=== PATIENT | female | born 1940 | race Caucasian/White ===

== ENCOUNTER 2017-11-10 13:47 | Emergency (ER) | payer OTHER, MEDICARE ==
[2017-11-10] MEDS ORDERED: ALENDRONATE SOD70 M2 PO (14:32)
[2017-11-10] MEDS ORDERED: ALPHA LIPOIC A600 MG PO (14:33)
[2017-11-10] MEDS ORDERED: CALCIUM600 M3 PO (14:33)
[2017-11-10] MEDS ORDERED: GABAPENTIN600 M1 PO (14:34)
[2017-11-10] MEDS ORDERED: LEVOTHYROXINE50 MCG PO (14:35)
[2017-11-10] MEDS ORDERED: KRILL OIL500 MG PO (14:35)
[2017-11-10] MEDS ORDERED: METHOTREXATE2.5 M2 PO (14:35)
[2017-11-10] MEDS ORDERED: VITAMIN D31000 UNI2 PO (14:36)
[2017-11-10] MEDS ORDERED: OMEPRAZOLE20 M2 PO (14:36)
[2017-11-10] MEDS ORDERED: GALZIN25 MG PO (14:37)
--- NOTE | 2017-11-10 14:58 | RADIOLOGY REPORT ---
EXAMINATION: XR PORTABLE CHEST CLINICAL INFORMATION: Syncope. Evaluate for pneumonia or congestive heart failure. COMPARISON: Chest radiograph 12/21/2012. TECHNIQUE: Portable frontal view of the chest was obtained. FINDINGS: Lungs are well-expanded. There is no focal consolidative disease, pleural effusion, or pneumothorax. The cardiac silhouette and upper mediastinal contours are normal. No acute osseous finding. IMPRESSION: Unremarkable chest radiograph. No consolidative disease or effusion.
[2017-11-10 15:01] LABS: ABSOLUTE BASOPHIL COUNT 0.1 /CUMM (0.0-0.2); ABSOLUTE EOSINOPHIL COUNT 0.1 /CUMM (0.0-0.7); ABSOLUTE GRANULOCYTE CT 5.3 /CUMM (1.4-6.5); ABSOLUTE LYMPH COUNT 1.2 /CUMM (1.2-3.4); ABSOLUTE MONOCYTE COUNT 0.5 /CUMM (0.10-0.60); BASOPHIL % 0.7 % (0.0-2.0); EOSINOPHIL % 1.4 % (0-5); GRANULOCYTE % 73.8 % (42.2-75.2); HEMATOCRIT 38.1 % (37-47); MEAN CORPUSCULAR HGB 33.3 PG (27.0-31.0); MEAN CORPUSCULAR HGB CONC 32.8 G/DL (33.0-37.0); MEAN CORPUSCULAR VOLUME 101.2 FL (81.0-99.0); MEAN PLATELET VOLUME 7.7 FL (7.4-10.4); PLATELET COUNT 264 /CUMM (130-400); RBC DISTRIBUTION WIDTH 15.9 % (11.5-14.5); RED BLOOD CELL CT 3.76 /CUMM (4.20-5.40); WHITE BLOOD CELL COUNT 7.1 /CUMM (4.8-10.8)
--- NOTE | 2017-11-10 15:37 | ED SYNCOPE COMPLAINT ---
History of Present Illness General Chief Complaint: Syncope and Near-Syncope Stated Complaint: NEAR SYNCOPLE EPISODE Source: patient Exam Limitations: no limitations Allergies Coded Allergies: NO KNOWN ALLERGIES (12/18/12) Reconcile Medications Alendronate Sodium 70 MG TABLET 1 TAB PO QW BONE (Reported) in the morning, at least 30 minutes before the first food, beverage, or medication of the day Alpha Lipoic Acid 600 MG CAPSULE 1 CAP PO DAILY SUPPLEMENT (Reported) Calcium (Elemental-Fr Calcarb) (Calcium) 600 MG CALCIUM (1,500 MG) TABLET 1 TAB PO DAILY SUPPLEMENT (Reported) Cholecalciferol (Vitamin D3) 1,000 UNIT TABLET 1 TAB PO DAILY VITAMIN SUPPORT (Reported) Gabapentin 600 MG TABLET 1 TAB PO 4 TIMES/DAY NEUROPATHY (Reported) Krill Oil 500 MG CAPSULE 1 CAP PO DAILY supplement (Reported) Levothyroxine Sodium 50 MCG TABLET 1 TAB PO DAILY AC THYROID (Reported) Methotrexate 2.5 MG TABLET 4 TAB PO QW UNKNOWN (Reported) Omeprazole 20 MG CAPSULE.DR 1 CAP PO DAILY GI (Reported) Zinc Acetate (Galzin) 25 MG (ZINC) CAPSULE 1 CAP PO DAILY SUPPLEMENT ( Reported) Triage Note: PT BIBA FROM HER PMD AFTER HAVING A NEAR SYNCOPAL EPISODE. PT STATES SHE WAS BEING SEEN A ROUTINE VISIT AND SHE WALKED INTO THE ROOM, LEGS BEGAN TO SHAKE AND SHE FELL TO HER BOTTOM. PT STATES SHE DID FEEL LIGHTHEADED. DENIES CP, DENIES SOB. FELT FINE FOR THE DAY. PT ALERT AND ORIENTED, DENIES HITTING HER HEAD. SKIN INTACT Triage Nurses Notes Reviewed? yes Timing: single episode today Precipitating Factors: lightheadedness Context: became dizzy/fainted Episode Description: STOOD UP BECAMNE DIZZY AND LIGHTHEADED, NO LOC Loss of Consciousness: no loss of consciousness Associated Symptoms: dizziness LMP (ages 10-50): post menopausal : No Patient currently breastfeeds: No HPI: 77 YEAR OLD FEMALE WITH HX OF HYPOTHYRIODISM AND OSTEOPOROSIS PRESENTS FOR EVAL OF A P[RE-SYNCOPEAL EPISODE. PT WAS AT HER PCP FOR A WELL CHECK. SHE WAS SITTING AND WAS CALLED BACK TO THE EXAM ROOM. AFTER STANDING SHE BECOME LIGHTHED ANBD DIZZY. SHE WAS AFRIAD SHE MAY PASS OUT SO SHE LOWERED HERSELF TO THE GROUND. THERE WAS NO LOC. NO HEAD STRIKE. NO CHEST PAIN SOB, PERSISTENT DIZZY, SLURRED SPEECH. ONE SIDED WEAKNESS N/V. PCP RP[EORTS PT WAS FOUND TO BE ORTHOSTATIC IN THE OFFICE. PT ALSO REPROTS THAT SHE HAS HAD LOWER BACK PAIN SINCE A FALL 2 WEEKS AGO. THE FALL WAS MECHANICAL. SHE LANDED ON HER BACK. PAIN LOCATED ON HER MIDLINE LUMBAR SPINE (Henry Melissa) Vital Signs & Intake/Output Vital Signs & Intake/Output Vital Signs Date Time Temp Pulse Resp B/P B/P Pulse O2 O2 Flow FiO2 Mean Ox Delivery Rate 11/10 2018 97.8 71 18 124/75 97 Room Air ED Intake and Output 11/11 0000 11/10 1200 Intake Total 0 Output Total Balance 0 Intake, Oral 0 (Quin ALEXANDRE,Wilton Mata) Past History Medical History Any Pertinent Medical History? see below for history History of MRSA: No History of VRE: No History of CDIFF: No Surgical History Surgical History: non-contributory Psychosocial History Who do you live with Patient/Self Services at Home None What is your primary language Taiwanese Family History Hx Contributory? No (Henry Melissa) Review of Systems Review of Systems Constitutional: Reports: no symptoms. EENTM: Reports: no symptoms. Respiratory: Reports: no symptoms. Cardiovascular: Reports: no symptoms. GI: Reports: no symptoms. Genitourinary: Reports: no symptoms. Musculoskeletal: Reports: back pain. Skin: Reports: no symptoms. Neurological/Psychological: Reports: see HPI (DIZZY, LIGHTHEADED). All Other Systems: Reviewed and Negative (Henry Melissa) Physical Exam Physical Exam General Appearance: well developed/nourished, no apparent distress, alert, awake Head: atraumatic, normal appearance Eyes: Bilateral: normal appearance, PERRL, EOMI. Ears, Nose, Throat: normal pharynx, normal ENT inspection, hearing grossly normal Neck: normal inspection, supple, full range of motion Respiratory: normal breath sounds, chest non-tender, no respiratory distress, lungs clear Cardiovascular: regular rate/rhythm, normal peripheral pulses (NO RADIAL FEM DELAY) Gastrointestinal: normal bowel sounds, soft, non-tender, no organomegaly Back: normal inspection, normal range of motion, THE LUMBAR SPINE AND PARASPINOUS MUSCLES ARE TENDER TO PALPATION. NO BRUSING SWELLING OR ABRASIONS. NO STEP OFFS OR DEFORMITIES. Extremities: normal inspection, normal range of motion, no edema Psychiatric: awake, alert, oriented x 3 Cranial Nerves: normal hearing, normal speech, PERRL Coordination/Gait: normal finger to nose, normal gait, NEGATIVE ROMBERG Motor/Sensory: no motor/sensory deficits Skin: intact, normal color, warm/dry Core Measures ACS in differential dx? No CVA/TIA Diagnosis: No Sepsis Present: No Sepsis Focused Exam Completed? No (Jesús BATES,Henry) Progress Differential Diagnosis: aortic valve, drug induced syncope, orthostatic syncope, other valvular disease, pulmonary embolus, seizure, sick sinus syndrome, subarachnoid hem., TIA/CVA, ventricular tach/fib Diagnostic Imaging: Viewed by Me: CT Scan. Discussed w/RAD: CT Scan. Radiology Impression: PATIENT: DALE LUND PRESENT AGE: 77 PATIENT ACCOUNT NO: [id number] : 41 LOCATION: [facility] ORDERING PHYSICIAN: Henry BATES SERVICE DATE: 11/10/17 EXAM TYPE: CAT - CT ABD & PELVIS W/O IV CONTRAS EXAMINATION: CT ABDOMEN AND PELVIS WITHOUT CONTRAST CLINICAL INFORMATION: Fall. Lower back pain. COMPARISON: CT scan of the abdomen and pelvis 12/16/2012. TECHNIQUE: Multidetector volumetric imaging was performed from the superior aspect of the liver through the pubic symphysis. Sagittal and coronal reformatted images were obtained on the technologist's workstation. DLP: 310.72 mGy-cm FINDINGS: LUNG BASES: There is a solid somewhat spiculated pulmonary nodule within the right lower lobe that measures 1.5 cm in maximal transaxial dimension. Tree-in-bud opacities are also visualized within the lateral segment of the middle lobe and within the lingula of the left upper lobe. Minimal bibasilar subsegmental atelectasis. No pleural effusion or pneumothorax. LIVER, GALLBLADDER, AND BILIARY TREE: The unenhanced liver attenuation is grossly homogeneous with no evidence of a discrete hepatic parenchymal mass. There appears to be some distention of the intrahepatic biliary system which is otherwise suboptimal assessed on this examination due to the absence of intravenous contrast. The gallbladder appears surgically absent. PANCREAS: Unremarkable. SPLEEN: Unremarkable. ADRENAL GLANDS: Unremarkable. KIDNEYS AND URETERS: There is bilateral renal cortical thinning. No discrete renal parenchymal mass. No abnormal perinephric inflammation or collection. No hydronephrosis. No worrisome mass or calcification along the expected course of the right or left ureter. BLADDER: Unremarkable. GASTROINTESTINAL TRACT: There is a small hiatal hernia. Stomach and small bowel is otherwise unremarkable. No evidence of small bowel obstruction. A few diverticula are visualized within the descending colon. No evidence of acute diverticulitis. The appendix is normal. No free intraperitoneal air or fluid. ABDOMINAL WALL: There is a tiny fat- containing umbilical hernia. LYMPH NODES: No pathologically enlarged mesenteric or retroperitoneal lymph nodes. VASCULAR: Atheromatous calcification involves the abdominal aorta and iliac vessels. The unenhanced inferior vena cava is unremarkable. PELVIC VISCERA: There is an anteverted uterus. No worrisome adnexal mass. OSSEOUS STRUCTURES: There is grade 2 anterolisthesis of L5 on S1 related to bilateral L5 pars interarticularis defects resulting in severe compression of the foraminal segments of both L5 nerve roots. Slight grade 1 anterolisthesis of L3 on L4 related to advanced facet degenerative changes at this level. Although the canal is not well assessed on this examination due to inherent limitations of CT there appears to be moderate to severe canal stenosis at L3-L4. There is a chronic upper L2 endplate disc herniation and moderate to severe degenerative spondylosis at multiple levels within the lumbar spine. IMPRESSION: Grade 2 anterolisthesis of L5 on S1 related to bilateral L5 pars interarticularis defect resulting in severe compression of the foraminal segments of both L5 nerve roots. Multilevel degenerative spondylosis within the lumbar spine. The canal is not well assessed on this examination due to inherent limitations of CT. There appears to be moderate to severe canal stenosis at L3- L4. DICTATED BY: Elana LAEXANDRE,Jimmy Florence DATE/TIME DICTATED:11/10/171756 SEAFOOD SPECIALIST:JANINE DATE/TIME TRANSCRIBED:11/10/171756 Initial ED EKG: normal sinus rhythm, LBBB, no ST T wave changes Prior EKG: unchanged Repeat EKG: unchanged (Henry Melissa) Plan of Care: Orders Procedure Date/time Status Regular Diet 11/11 B Active Laboratory Tests 11/10/170: Urinalysis LIGHT H, Urine Color YEL, Urine Clarity CLEAR, Urine pH 6.0, Ur Specific Agency 1.020, Urine Protein NEG, Urine Ketones NEG, Urine Nitrite NEG, Urine Bilirubin NEG, Urine Urobilinogen 0.2, Ur Leukocyte Esterase TRACE H, Ur Microscopic SEDIMENT EXAMINED, Urine RBC FEW H, Urine WBC 3-5 H, Ur Epithelial Cells FEW, Urine Hemoglobin NEG, Urine Glucose NEG 11/10/17 1827: Troponin I 0.01 PT SEEN AND EVALUATED. SHE HAD A NEAR SYNCOPAL EPISODE PRECIPETAED BY STANDING UP. NO CHEST PAIN,. NO LOC. SHE IS NOT OTHOSTATIC HERE. SHE HAS NOT CARDIAC HX. SHE IS NEUROLOGICVALLY INTACT. INIITAL EKG AND TROP AND NEGATIVE. WILL MONITOR ON TELE. WILL CHECK A CT OF THE ABD AND PELVIS TO EVAL LOWER BACK PAIN. PT DECLINES PAION MEDS. BLOOD WORK IS WNL. CT SCAN SHOWS EVIDENCE OF SEVERE CANAL STENOSIS COMPRESSION AND NERVE ROOT STENOSIS. NO CLINICAL SIGSN OF CAUDA EQUINA. DISCUSSED RESULTS WITH DR SUTTON FROM NEUROSURGERY WHO RECCOMENDS OUT PT FOLLOW UP. REPEAT EKG AND TROP NEGATIVE. PT WAS AMBULATED IN THE ED AND HAS A STEADY GAIT WITHOUT DIZZINESS. ADVISED HER TO TAKE HER TIME STANDING UP. INCREASE FLUIDS. CONSIDERED ADMITTING FOR OBS DUE TO PRESYNOPE HOWEVER PT HAS NO CADFIAC HX. NO CHEST PAIN. SHE WAS MONIOTRED IN [facility] ED FOR 6+ HOURS WITHOUT REPEAT SYMPTOMS. NEGATIVE CALDERON RADHA SYNCOPE RULE CASE DISCUSSED WITH DR MURCIA WHO AGREES. PT WILL BE DISCHARGE HOME WITH INSTRUCTIONS TO FOLLOW UP WITH PCP. (Henry Melissa) (Quin ALEXANDRE,Wilton Mata) Departure Departure Disposition: HOME OR SELF CARE Condition: Stable Clinical Impression Primary Impression: Pre-syncope Referrals: Adams HOFF-TRICIA,Mark Florence (PCP/Family) Alis ALEXANDRE,Sophia Florence Additional Instructions: Rest and drink plenty of fluids. Tylenol 1000 mg every 6 hours as needed for pain. Make a follow-up with her primary care doctor and provided neurosurgeon as soon as possible. Monitor symptoms closely return with any concerns. Departure Forms: Customer Survey General Discharge Information (Henry Melissa) PA/LOCK TECHNICIAN Co-Sign Statement Statement: ED Attending supervision documentation- [x] I saw and evaluated the patient. I have also reviewed all the pertinent lab results and diagnostic results. I agree with the findings and the plan of care as documented in the PA's/LOCK TECHNICIAN's documentation. Patient presents for evaluation of a near syncopal episode while in her doctor's waiting room. Physical examination reveals a nonfocal neurologic examination and comfortable appearing woman. [] I have reviewed the ED Record and agree with the PA's/LOCK TECHNICIAN's documentation. [] Additions or exceptions (if any) to the PAs/LOCK TECHNICIAN's note and plan are summarized below: [] (Quin ALEXANDRE,Wilton Mata)
--- NOTE | 2017-11-10 18:14 | CT SCAN REPORT ---
EXAMINATION: CT ABDOMEN AND PELVIS WITHOUT CONTRAST CLINICAL INFORMATION: Fall. Lower back pain. COMPARISON: CT scan of the abdomen and pelvis 12/16/2012. TECHNIQUE: Multidetector volumetric imaging was performed from the superior aspect of the liver through the pubic symphysis. Sagittal and coronal reformatted images were obtained on the technologist's workstation. DLP: 310.72 mGy-cm FINDINGS: LUNG BASES: There is a solid somewhat spiculated pulmonary nodule within the right lower lobe that measures 1.5 cm in maximal transaxial dimension. Tree-in-bud opacities are also visualized within the lateral segment of the middle lobe and within the lingula of the left upper lobe. Minimal bibasilar subsegmental atelectasis. No pleural effusion or pneumothorax. LIVER, GALLBLADDER, AND BILIARY TREE: The unenhanced liver attenuation is grossly homogeneous with no evidence of a discrete hepatic parenchymal mass. There appears to be some distention of the intrahepatic biliary system which is otherwise suboptimal assessed on this examination due to the absence of intravenous contrast. The gallbladder appears surgically absent. PANCREAS: Unremarkable. SPLEEN: Unremarkable. ADRENAL GLANDS: Unremarkable. KIDNEYS AND URETERS: There is bilateral renal cortical thinning. No discrete renal parenchymal mass. No abnormal perinephric inflammation or collection. No hydronephrosis. No worrisome mass or calcification along the expected course of the right or left ureter. BLADDER: Unremarkable. GASTROINTESTINAL TRACT: There is a small hiatal hernia. Stomach and small bowel is otherwise unremarkable. No evidence of small bowel obstruction. A few diverticula are visualized within the descending colon. No evidence of acute diverticulitis. The appendix is normal. No free intraperitoneal air or fluid. ABDOMINAL WALL: There is a tiny fat-containing umbilical hernia. LYMPH NODES: No pathologically enlarged mesenteric or retroperitoneal lymph nodes. VASCULAR: Atheromatous calcification involves the abdominal aorta and iliac vessels. The unenhanced inferior vena cava is unremarkable. PELVIC VISCERA: There is an anteverted uterus. No worrisome adnexal mass. OSSEOUS STRUCTURES: There is grade 2 anterolisthesis of L5 on S1 related to bilateral L5 pars interarticularis defects resulting in severe compression of the foraminal segments of both L5 nerve roots. Slight grade 1 anterolisthesis of L3 on L4 related to advanced facet degenerative changes at this level. Although the canal is not well assessed on this examination due to inherent limitations of CT there appears to be moderate to severe canal stenosis at L3-L4. There is a chronic upper L2 endplate disc herniation and moderate to severe degenerative spondylosis at multiple levels within the lumbar spine. IMPRESSION: Grade 2 anterolisthesis of L5 on S1 related to bilateral L5 pars interarticularis defect resulting in severe compression of the foraminal segments of both L5 nerve roots. Multilevel degenerative spondylosis within the lumbar spine. The canal is not well assessed on this examination due to inherent limitations of CT. There appears to be moderate to severe canal stenosis at L3-L4.
[2017-11-10 20:19] VITALS: BP 124/75
== END 2017-11-10 20:21 ==
LOC: ERH 13:47
PROVIDERS: Physician Assistant Medical
DX: R55 Syncope and collapse (principal); M54.5 Low back pain; E03.9 Hypothyroidism, unspecified
CPT/HCPCS: 71045; 74176; 81001; 93005; 93010